=== PATIENT | male | born 1995 | race African-American/Black ===

== ENCOUNTER 2018-12-20 04:26 | Emergency (ER) | payer OTHER ==
[~2018-12-20] VITALS: Ht 185.4 cm; Wt 113.6 kg
[~2018-12-20 04:26] MED LIST: MIRA3350 PO
[2018-12-20] MEDS ORDERED: GNPLIQ60 PO (04:30)
[2018-12-20] MEDS ORDERED: ACET-683 PO (04:30)
[2018-12-20] MEDS ORDERED: ACETAMINOPHEN TAB 650MG DOSE (2X325MG) PO ONE (05:30)
[2018-12-20] MEDS ORDERED: IBUPROFEN 800 MG TAB PO ONE (05:30)
[2018-12-20 07:26] LABS: INFLUENZA A AMPLIFICATION POSITIVE (NEGATIVE); INFLUENZA B AMPLIFICATION NEGATIVE (NEGATIVE)
[2018-12-20 07:45] VITALS: BP 148/84
[2018-12-20] MEDS ORDERED: OSEL75CA PO (07:50)
[2018-12-20] MEDS ORDERED: IBUP1TAB7 PO (23:54)
[2018-12-21] MEDS ORDERED: ONDA4TAB6 PO (01:47)
[2018-12-21] MEDS ORDERED: IBUP80TA PO (01:47)
== END 2018-12-20 07:57 | disposition home or self-care (01) ==
LOC: M ED 04:26
DX: J09.X2 Influenza due to identified novel influenza A virus with other respiratory manifestations (principal); Z20.828 Contact with and (suspected) exposure to other viral communicable diseases

== ENCOUNTER 2018-12-20 23:46 | Emergency (ER) | payer OTHER ==
[~2018-12-20] VITALS: Ht 182.9 cm; Wt 113.6 kg
[~2018-12-20 23:46] MED LIST changes: +ACET-683 PO; +GNPLIQ60 PO; +OSEL75CA PO
[2018-12-20] MEDS ORDERED: IBUP1TAB7 PO (23:54)
[2018-12-21] MEDS ORDERED: NS 1,000 ML IV ONE (00:45)
[2018-12-21] MEDS ORDERED: ONDANSETRON 4MG/2ML VIAL (J2405) IV ONE (00:45)
[2018-12-21] MEDS ORDERED: IBUPROFEN 800 MG TAB PO ONE (00:45)
[2018-12-21] MEDS ORDERED: IBUP80TA PO (01:47)
[2018-12-21] MEDS ORDERED: ONDA4TAB6 PO (01:47)
[2018-12-21 02:35] VITALS: BP 124/92
== END 2018-12-21 02:37 | disposition home or self-care (01) ==
LOC: M ED 23:46
DX: J09.X2 Influenza due to identified novel influenza A virus with other respiratory manifestations (principal)
CPT/HCPCS: 96361; 96374; 99284; J2405